=== PATIENT | female | born 2000 | race African-American/Black ===

== ENCOUNTER 2025-01-26 15:10 | Inpatient (IN) | payer BC ==
[2025-01-26 15:47] VITALS: BMI 29.9
[2025-01-26] MEDS: hydrALAZINE 20 MG/ML VIAL SLOW IVP PRN (16:00)
[2025-01-26] MEDS ORDERED: Acetaminophen 500 MG TAB PO PRN (16:04)
[2025-01-26] MEDS ORDERED: hydrALAZINE 20 MG/ML VIAL SLOW IVP PRN (16:04)
[2025-01-26] MEDS ORDERED: HYDROcodone/Acetaminophen 5/325 mg Tablet PO PRN (16:04)
[2025-01-26] MEDS ORDERED: Diphenoxylate HCl/Atropine Tablet PO PRN (16:04)
[2025-01-26] MEDS ORDERED: Tranexamic Acid 1,000 MG/10 ML VIAL IVP PRN (16:04)
[2025-01-26] MEDS ORDERED: Lidocaine 1% (PF) 30 ML VIAL SC PRN (16:04)
[2025-01-26] MEDS ORDERED: Carboprost 250 MCG/ML AMP IM PRN (16:04)
[2025-01-26] MEDS ORDERED: Ibuprofen 800 MG TAB PO PRN (16:04)
[2025-01-26] MEDS ORDERED: Calcium Gluc 4.6 MEQ/10 ML (100 MG/ML) SLOW IVP PRN (16:04)
[2025-01-26] MEDS ORDERED: Oxytocin 30 units/NS 500 ML 500 ML IV SCH ×2 (16:15)
[2025-01-26] MEDS: Magnesium Sulfate 20 gm/500 ml 20 GM/500 ML BAG IVPB SCH (16:18)
[2025-01-26 16:38] LABS: Protein, Urine Random Quant 238.0 mg/dL (1-14)
[2025-01-26 16:52] LABS: Syphilis Antibody Index 0.24 S/CO (<1.00 Non-Reactive)
[2025-01-26 16:53] LABS: Hematocrit 31.4 % (34.9-44.5); Hemoglobin 10.1 g/dL (12.0-15.5); Hep B Surf Ag - L&D Non-Reactive S/CO (NonReactive); Mean Corpuscular Hemoglobin 27.7 pg (27.0-33.0); Mean Corpuscular Volume 86.0 fL (81.6-98.3); Platelet Count 201 10x3/uL (150-450); Red Blood Cell (RBC) Count 3.65 10x6/uL (3.90-5.03); White Blood Cell (WBC) Count 6.39 10x3/uL (3.5-10.5)
[2025-01-26 17:58] LABS: ALT (SGPT) 22 U/L (Less than 34); AST (SGOT) 45 U/L (11-34); Albumin 3.3 g/dL (3.1-4.5); Alkaline Phosphatase 179 U/L (40-110); Anion Gap 13 mmol/L (10-20); BUN (Urea Nitrogen) 12 mg/dL (7.0-18.7); Bilirubin, Total 0.3 mg/dL (0.3-1.2); Calc. Creatinine Clearance 118 mL/min (70-130); Calcium 8.5 mg/dL (7.8-10.44); Carbon Dioxide 17 mmol/L (22-29); Chloride 108 mmol/L (98-107); Globulin 3.2 g/dL (2.4-3.5); Glucose 70 mg/dL (70-105); Potassium 4.2 mmol/L (3.5-5.1); Sodium 134 mmol/L (136-145)
[2025-01-26] MEDS: Magnesium Sulfate 20 gm/500 ml 20 GM/500 ML BAG ONE (18:43)
[2025-01-26] MEDS: hydrALAZINE 20 MG/ML VIAL ONE (21:37)
[2025-01-27] MEDS ORDERED: Bupivacaine 0.25% HCL 30 ML VIAL ONE (08:00)
[2025-01-27] MEDS: Ondansetron PF 4 MG/2 ML Vial IVP PRN (10:21)
[2025-01-27] MEDS: fentaNYL/Ropivacaine Epidural 100 ML ONE (11:15)
[2025-01-27] MEDS ORDERED: diphenhydrAMINE 50 MG/ML VIAL IVP PRN (11:30)
[2025-01-27] MEDS ORDERED: Communication Order-Pharmacy FS SCH (11:30)
[2025-01-27] MEDS ORDERED: Ondansetron PF 4 MG/2 ML Vial IVP PRN (11:30)
[2025-01-27] MEDS ORDERED: Acetaminophen 325 MG TAB PO PRN (11:30)
[2025-01-27 16:59] LABS: Magnesium 8.2 mg/dL (1.6-2.6)
[2025-01-27 17:55] LABS: ALT (SGPT) 16 U/L (Less than 34); AST (SGOT) 37 U/L (11-34); Albumin 2.9 g/dL (3.1-4.5); Alkaline Phosphatase 177 U/L (40-110); Anion Gap 11 mmol/L (10-20); BUN (Urea Nitrogen) 10 mg/dL (7.0-18.7); Bilirubin, Total 0.4 mg/dL (0.3-1.2); Calc. Creatinine Clearance 95 mL/min (70-130); Calcium 7.2 mg/dL (7.8-10.44); Carbon Dioxide 21 mmol/L (22-29); Chloride 99 mmol/L (98-107); Globulin 3.1 g/dL (2.4-3.5); Glucose 89 mg/dL (70-105); Potassium 4.4 mmol/L (3.5-5.1); Sodium 127 mmol/L (136-145)
[2025-01-27 19:27] LABS: Calc. Creatinine Clearance 86.0 mL/min (70-130)
[2025-01-27 19:35] LABS: Magnesium 7.0 mg/dL (1.6-2.6)
[2025-01-27 22:08] LABS: Calc. Creatinine Clearance 75 mL/min (70-130)
[2025-01-27 22:09] LABS: Magnesium 6.4 mg/dL (1.6-2.6)
[2025-01-27] MEDS: fentaNYL 2 mcg/Ropivacaine 0.2% Epidural 100 ML CADD EPIDURAL SCH (22:30)
[2025-01-28 00:13] LABS: Analyzer IN Cardio CS NICU; Critical Notified By: CP.LH1; RapidComm Collect By CBN; pH (Cord, venous) 7.322 (7.250-7.350)
[2025-01-28 01:04] LABS: Calc. Creatinine Clearance 81.0 mL/min (70-130)
[2025-01-28 01:21] LABS: Magnesium 5.3 mg/dL (1.6-2.6)
[2025-01-28 03:30] LABS: Calc. Creatinine Clearance 81.0 mL/min (70-130)
[2025-01-28 03:42] LABS: Magnesium 5.2 mg/dL (1.6-2.6)
[2025-01-28 05:49] LABS: Calc. Creatinine Clearance 85.0 mL/min (70-130)
[2025-01-28 06:00] LABS: Magnesium 5.2 mg/dL (1.6-2.6)
[2025-01-28] MEDS: Erythromycin Base 0.5% Oint 1 GM TUBE ONE (08:50)
[2025-01-28] MEDS: hydrALAZINE 20 MG/ML VIAL SLOW IVP PRN (09:03)
[2025-01-28] MEDS: NIFEdipine XL 30 MG ER.TAB PO SCH (09:12)
[2025-01-28 12:34] LABS: Calc. Creatinine Clearance 91 mL/min (70-130)
[2025-01-28 12:38] LABS: Magnesium 5.0 mg/dL (1.6-2.6)
[2025-01-28] MEDS: Hepatitis B Vaccine 10 MCG/0.5 ML SYR ONE (22:14)
[2025-01-28] MEDS ORDERED: Lanolin Ointment 7 GM TUBE TOP PRN (23:36)
[2025-01-28] MEDS ORDERED: Ondansetron PF 4 MG/2 ML Vial IVP PRN (23:36)
[2025-01-28] MEDS ORDERED: diphenhydrAMINE 25 MG CAP PO PRN (23:36)
[2025-01-28] MEDS ORDERED: Bisacodyl 10 MG SUPP PR PRN (23:36)
[2025-01-28] MEDS ORDERED: Benzocaine-Menthol 82.5 ML CAN TOP PRN (23:36)
[2025-01-28] MEDS ORDERED: Preparation H Ointment 28 GM TUBE PR PRN (23:36)
[2025-01-28] MEDS ORDERED: HYDROcodone/Acetaminophen 5/325 mg Tablet PO PRN ×2 (23:36)
[2025-01-28] MEDS ORDERED: hydrALAZINE 20 MG/ML VIAL SLOW IVP PRN (23:36)
[2025-01-28] MEDS ORDERED: Milk Of Magnesia 30 ML UDCUP PO PRN (23:36)
[2025-01-29] MEDS: Ibuprofen 800 MG TAB PO SCH (01:10)
[2025-01-29] MEDS: Ferrous Sulfate 325 MG TAB PO SCH ×2 (07:34→07:36)
[2025-01-29] MEDS: Boostrix 0.5 ML (Tdap) VIAL (>/=7 yrs of age) IM ONE (07:34)
[2025-01-29] MEDS: NIFEdipine XL 60 MG ER.TAB PO SCH (08:21)
[2025-01-29] MEDS ORDERED: NIFEdipine XL 30 MG ER.TAB PO SCH (09:00)
[2025-01-30] MEDS: NIFEdipine XL 90 MG ER.TAB PO SCH (08:13)
[2025-01-30 08:25] VITALS: TEMP 98.1
[2025-01-30 15:50] VITALS: BP 134/77
== END 2025-01-30 16:30 | disposition home or self-care (01) | DRG 807 ==
LOC: CSHLD/OP 15:10 → CSHLD 16:04 → UNDOADMIN 16:11 → CSHLD 01-28 02:00 → UNDOADMIN 01-28 02:00 → CSHLD 01-28 13:10 → UNDOADMIN 01-28 13:10 → CSHPP 01-29 00:30
PROVIDERS: ADMIT Student in an Organized Health Care Education/Training Program; ATTEND Student in an Organized Health Care Education/Training Program
PROC: 10E0XZZ Delivery of Products of Conception, External Approach (ICD-10-PCS; principal; 2025-01-26)
PROC: 4A1HXCZ Monitoring of Products of Conception, Cardiac Rate, External Approach (ICD-10-PCS; 2025-01-26)
DX: O10.93 Unspecified pre-existing hypertension complicating the puerperium (principal); Z37.0 Single live birth; O70.0 First degree perineal laceration during delivery; Z79.899 Other long term (current) drug therapy; Z79.82 Long term (current) use of aspirin; Z3A.38 38 weeks gestation of pregnancy
CPT/HCPCS: 36415; 51702; 80053; 82565; 82570; 82805; 83735; 84156; 85027; 86780; 86850; 86900; 86901; 87340; 99285; J0360; J0665; J2405; J3475; J7120